=== PATIENT | female | born 2005 | race Caucasian/White ===

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

== ENCOUNTER 2023-07-07 14:07 | Emergency (ER) | payer BC, SELFPAY ==
[2023-07-07 14:09] VITALS: BP 149/87; PULSE 63; RESP 14; TEMP 36.8; O2SAT 99
[2023-07-07 14:15] VITALS: BP 149/87; PULSE 63; RESP 14; TEMP 36.8; O2SAT 99
--- NOTE | 2023-07-07 14:22 | W.ED.GENAD ---
HPI General Mode of arrival: ambulatory. Date/Time Provider Initiated Documentation: 07/07/23 14:08. Limitations to Documentation: no limitations. Information obtained by: patient. History of Present Illness 17 year old F presents to the emergency department with the chief complaint of n/v, Patient started experiencing this day(s) (2) and it has been intermittent. No relieving factors improve symptom(s), Patient notes denies fever/chills and shortness of breath. Related Data Home Medications Medication Instructions Recorded Confirmed ibuprofen 600 mg tablet 600 mg PO Q6H PRN 07/28/21 07/07/23 levonorgestrel 21 mcg/24 hours (8 1 insert intrauterine ONCE 07/28/21 07/07/23 yrs) 52 mg intrauterine device (Mirena) buspirone 5 mg tablet 5 mg PO BID 10/02/21 07/07/23 nitrofurantoin macrocrystal 50 mg 50 mg PO QHS #60 caps 10/02/21 07/07/23 capsule sulfamethoxazole 800 1 tab PO Q12H #10 tabs 10/03/21 07/07/23 mg-trimethoprim 160 mg tablet (Bactrim DS) hydrocodone 5 mg-acetaminophen 325 1 tab PO .Q6 07/07/23 07/07/23 mg tablet ondansetron 4 mg disintegrating 4 mg PO Q8H PRN nausea and 07/07/23 tablet vomiting #30 tabs Previous Rx's Medication Instructions Recorded nitrofurantoin macrocrystal 50 mg 50 mg PO QHS #60 caps 10/02/21 capsule sulfamethoxazole 800 1 tab PO Q12H #10 tabs 10/03/21 mg-trimethoprim 160 mg tablet (Bactrim DS) ondansetron 4 mg disintegrating 4 mg PO Q8H PRN nausea and 07/07/23 tablet vomiting #30 tabs Allergies Allergy/AdvReac Type Severity Reaction Status Date / Time No Known Allergies Allergy Verified 07/07/23 14:16 General Stated Complaint: DentalOral BONNIE: 3 Review of Systems All systems reviewed & are unremarkable except as noted in HPI and below Constitutional Constitutional: Denies chills, Denies fever(s) and Denies weakness Cardiovascular Cardiovascular: Denies chest pain and Denies dyspnea Respiratory Respiratory: Denies cough and Denies dyspnea Gastrointestinal Gastrointestinal: Denies abdominal pain, Reports nausea and Reports vomiting Integumentary/Breasts Skin/Breast: Denies rash Neurologic Neurologic: Denies weakness Exam Const General: no acute distress Orientation: alert HENMT Head: normal to inspection Ears: external ears normal General nose exam: external nose normal Mouth: moist mucous membranes Eyes General: appearance normal, both eyes and all related structures Neck Neck: normal visual inspection Resp Effort & Inspection: normal respiratory effort and able to speak in complete sentences Cardio Rate: regular rate GI Palpation: soft and nontender Skin General skin exam: no rashes or lesions noted Neuro General: patient alert and patient oriented x3 Extrem General: normal to inspection Psych Mental Status: mental status grossly normal Course Vital Signs Vital signs: Vital Signs Temperature 36.8 C 07/07/23 14:09 Pulse 63 07/07/23 14:09 Respiratory Rate 14 07/07/23 14:09 Blood Pressure 149/87 H 07/07/23 14:09 Pulse Oximetry 99 07/07/23 14:09 Temperature 36.8 C 07/07/23 14:15 Temperature Source Skin 07/07/23 14:15 Pulse 63 07/07/23 14:15 Respiratory Rate 14 07/07/23 14:15 Respiratory Effort Normal, Non-Labored 07/07/23 14:15 Blood Pressure 149/87 H 07/07/23 14:15 Blood Pressure Position Sitting 07/07/23 14:15 Pulse Oximetry 99 07/07/23 14:15 Oxygen Delivery Method Room Air 07/07/23 14:15 Oxygen Flow Rate 0 07/07/23 14:15 Pain Level 5 07/07/23 14:20 Medical Decision Making 17 yo female who states she had 4 wisdom teeth pulled last week and then developed a dry socket in her right upper area where she had a tooth removed and due to the pain and discomfort hasn't been eating and drinking much comes in because she feels dehydrated and has n/v when she takes her prescription pain medication. No fevers, no chills, no abdominal pain or chest pain or dyspnea. She is caox4 and appeas well, normal posterior pharynx, midline uvula, no drainage or bleeding from any of the tooth extraction sites, no submandibular swelling or pain over the hyoid, soft nontender abdomen. Suspect mediation side effect from not having food in her stomach, will check cbc, cmp and treat with zofran and fluids and reassess. No findings to suggest tooth extraction site infection or entities such as giovanny's. No abdominal tenderness so do not feel imaging indicated as unlikely surgical pathology. labs without significant abnormalities, mild leukocytosis likely reactive from vomiting. She is feeling much better and can tolerate po. She is stable for d/c, advised to f/u with her oral surgeon and return precautions given Differential Diagnosis Differential Diagnosis: medication side effect, dehydration Lab Data Lab results reviewed: Yes I reviewed the patient's lab results. Quality:SDOH Health Related Social Needs: No Data to Display [facility] All Active Problems (Updated 07/07/23 @ 14:48 by Jewel Duggan MD) N&V (nausea and vomiting) (Acute) Conductive hearing loss, bilateral (Acute) Acute serous otitis media, bilateral (Acute) Frequent UTI (Acute) E. coli UTI (Acute) Abnormal uterine bleeding (AUB) (Acute) 08/[address]UD in [address]. 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 Other No problems noted. Social History Smoking/Tobacco Use Status: Never Smoking risk assessment performed?: Yes Alcohol Intake: never Drug use: Never Substance use type: does not use Do you feel safe at home: Yes Do you feel safe in your relationship?: Yes Discharge Plan Disposition Patient Disposition: Home Condition: Stable Discharge Details Clinical Impression: N&V (nausea and vomiting) Primary Care Provider: Alison Delarosa ED Provider: Jewel Duggan Home Meds and New Rx's Prescriptions: New ondansetron 4 mg tablet,disintegrating 4 mg PO Q8H PRN (Reason: nausea and vomiting) Qty: 30 0RF Continued buspirone 5 mg tablet 5 mg PO BID nitrofurantoin macrocrystal 50 mg capsule 50 mg PO QHS Qty: 60 3RF Rx Instructions: must administer with a meal/food. take after each episode of sexual intercourse sulfamethoxazole-trimethoprim [Bactrim DS] 800-160 mg tablet 1 tab PO Q12H Qty: 10 0RF Mirena 20 mcg/24 hours (7 yrs) 52 mg intrauterine device 1 insert intrauterine ONCE Rx Instructions: as a single dose ibuprofen 600 mg tablet 600 mg PO Q6H PRN hydrocodone-acetaminophen 5-325 mg tablet 1 tab PO .Q6 Patient Comments: TAKE ONE TABLET BY MOUTH EVERY 6 HOURS Discharge Instructions Instructions: Acute Nausea and Vomiting (ED) Additional Instructions: follow up with your oral surgeon as scheduled if you feel more ill, have severe abdominal pain or difficulty breathing return to the emergency department
[2023-07-07] MEDS: Ondansetron 4 MG/2 ML VIAL IVP (14:27)
[2023-07-07] MEDS: Normal Saline 1,000 ML 1000 ML IV (14:27)
[2023-07-07 14:40] LABS: Abs Immature Grans 0.06 10^3/uL (0.0-0.06); Absolute Basophil Count 0.05 10^3/uL (0.0-0.2); Absolute Eosinophil Count 0.02 10^3/uL (0.0-0.7); Absolute Lymphocyte Count 1.76 10^3/uL (1.2-3.4); Absolute Monocyte Count 0.87 10^3/uL (0.1-0.8); Absolute Neutrophil Count 13.08 10^3/uL (1.2-6.7); Basophils % 0.3; Eosinophils % 0.1; HGB 13.9 g/dL (11.2-15.7); Immature Grans % 0.4; Lymphocytes % 11.1; MCH 31.1 pg (27.0-33.0); MCHC 33.9 % (32.0-36.0); MCV 92 fL (80-95); MPV 8.9 fL (8.0-11.0); Monocytes % 5.5; Neutrophils % 82.6; Platelet Count 359 10^3/uL (130-400); RBC 4.47 10^6/uL (3.93-5.22); RDW 12.7 % (11.7-14.6); RDW-SD 42.8 fL; WBC 15.84 10^3/uL (4.4-10.8)
[2023-07-07 14:54] LABS: ALT 22 U/L (14-59); AST 14 U/L (15-37); Albumin 4.6 g/dL (3.4-5.0); Alkaline Phosphatase 82 U/L (46-116); Anion Gap 12.3 mmol/L (3-11); BUN 12 mg/dL (7-18); Bilirubin, Total 0.4 mg/dL (0.2-1.0); CO2 24.7 mmol/L (21.0-32.0); Calcium 10.2 mg/dL (8.5-10.1); Chloride 100 mmol/L (98-107); Estimated GFR 83.23 (mL/min/1.73m2); Glucose 114 mg/dL (74-106); Sodium 137 mmol/L (136-145); Total Protein 8.6 g/dL (6.4-8.2)
[2023-07-07 14:56] LABS: HCG Qual (Serum) Negative
[2023-07-07 15:32] VITALS: BP 122/86; PULSE 78; RESP 17; TEMP 36.8; O2SAT 99
[2023-07-07] MEDS: Ketorolac 15 MG/ML VIAL IVP (15:32)
[2023-07-07] MEDS: Ondansetron O.D.T. 4 MG TABEF, 3 TABS/BTL PO (15:32)
== END 2023-07-07 15:34 | disposition home or self-care (01) ==
PROVIDERS: Emergency Provider Emergency Medicine; PCP Nurse Practitioner Family
DX: R11.2 Nausea with vomiting, unspecified (principal); Z98.818 Other dental procedure status
CPT/HCPCS: 80053; 96361; 96374; 99283; 83735; 84703; 85025; J1885; J2405

== ENCOUNTER 2024-09-23 16:03 | Outpatient (REF) | payer OTHER, SELFPAY ==
[2024-09-25 11:08] LABS: Chlamydia Result Negative (Negative); GC Result Negative (Negative)
== END 2024-09-23 16:04 | disposition home or self-care (01) ==
LOC: LBN 16:03
PROVIDERS: PCP Nurse Practitioner Family; Visit Provider Obstetrics & Gynecology
DX: Z70.8 Other sex counseling (principal); Z30.431 Encounter for routine checking of intrauterine contraceptive device
CPT/HCPCS: 87491; 87591